=== PATIENT | male | born 1985 | race Two or more races ===

== ENCOUNTER 2021-12-26 23:10 | Emergency (ER) | payer OTHER ==
[~2021-12-26] VITALS: Ht 175.3 cm; Wt 90.7 kg
--- NOTE | 2021-12-26 23:26 | NUR ---
BIBRA C/O RLE PAIN S/P FALL FROM SCOOTER. -HT -KO. PT CHANGED INTO A GOWN AND LOWER EXTREMITY VISUALIZED WITH SKIN INTACT AND NO GROSS DEFORMITIES. PLACED ON MONITOR AND ALL V/S STABLE.
--- NOTE | 2021-12-26 23:43 | NUR ---
PT SEEN BY DR. LAW WYATT.
[2021-12-26] MEDS ORDERED: TRAMADOL HCL 50 MG TABLET ONE (23:45)
[2021-12-26] MEDS ORDERED: KETOROLAC TROMETHAMINE INJ 30 MG/ML VIAL ONE (23:45)
--- NOTE | 2021-12-26 23:51 | NUR ---
DEVELOPMENTAL SERVICES WORKER AT PT'S BEDSIDE
[2021-12-27] MEDS ORDERED: TRAMADOL HCL 50 MG TABLET PO ONE
[2021-12-27] MEDS ORDERED: KETOROLAC TROMETHAMINE INJ 30 MG/ML VIAL IM ONE
--- NOTE | 2021-12-27 00:58 | NUR ---
CLINICAL PHLEBOTOMIST AT PT'S BEDSIDE
--- NOTE | 2021-12-27 02:33 | NUR ---
DR ANKIT JENNINGS PER DR GODDARD.
--- NOTE | 2021-12-27 03:00 | NUR ---
DR PHAM REPAGED.
--- NOTE | 2021-12-27 03:11 | NUR ---
DR SUNDAR JENNINGS ,
--- NOTE | 2021-12-27 03:30 | NUR ---
DR PHAM REPAGED.
--- NOTE | 2021-12-27 04:00 | NUR ---
DR PHAM REPAGED.
[2021-12-27] MEDS ORDERED: oxyCODONE/APAP (5/325 MG) 1 UDTAB TABLET PO ONE (04:30)
--- NOTE | 2021-12-27 04:30 | NUR ---
DR PHAM REPAGED.
[2021-12-27] MEDS ORDERED: oxyCODONE/APAP (5/325 MG) 1 UDTAB TABLET ONE (04:35)
--- NOTE | 2021-12-27 05:06 | NUR ---
BUILDINGS AND GROUNDS SUPERINTENDENT AT PT'S BEDSIDE
--- NOTE | 2021-12-27 05:42 | NUR ---
DR GODDARD ON THE PHONE W/ DR PHAM, ORTHO
[2021-12-27] MEDS ORDERED: HYDR-3980 PO (05:51)
[2021-12-27 06:09] LABS: CALCIUM, SERUM 8.5 mg/dL (8.5-10.1); CREATININE 1.1 mg/dL (0.6-1.3); POTASSIUM 3.6 mmol/L (3.5-5.1)
--- NOTE | 2021-12-27 06:12 | NUR ---
CALLED SAMANTHA NO RESPONSE; SMS LEFT. WILL CALL AGAIN
--- NOTE | 2021-12-27 06:21 | NUR ---
Patient discharged to home in stable condition. RX Written and verbal after care instructions given. Patient verbalizes understanding of instruction. KNEE BRACE TO PT'S KNEE.
[2021-12-27] MEDS ORDERED: HYDR-4275 PO (07:25)
[2021-12-27 07:26] LABS: BASOPHILS # (AUTO) 0.1 K/uL (0.0-0.2); BASOPHILS % (AUTO) 0.4 % (0.0-2.0); EOSINOPHILS % (AUTO) 1.3 % (0.0-6.0); HEMATOCRIT 49 % (39-51); HEMOGLOBIN 16.8 g/dL (13.5-17.5); LYMPHOCYTES # (AUTO) 2.3 K/uL (0.8-4.8); LYMPHOCYTES % (AUTO) 18.1 % (20.0-44.0); MEAN CORPUSCULAR HGB CONC 34 g/dl (31.0-36.0); MEAN CORPUSCULAR VOLUME 89 fL (80-96); MONOCYTES # (AUTO) 0.9 K/uL (0.1-1.30); NEUTROPHILS # (AUTO) 9.3 K/uL (1.8-8.9); NEUTROPHILS % (AUTO) 73.2 % (43.0-81.0); PLATELET COUNT (AUTO) 197 K/uL (150-450); RED BLOOD CELL COUNT(AUTO) 5.55 MIL/uL (4.5-6.0); WHITE BLOOD COUNT (AUTO) 12.8 K/uL (4.3-11.0)
[2021-12-27] MEDS ORDERED: HYDROCODONE/APAP 5/325MG TABLET ONE (09:00)
[2021-12-27] MEDS ORDERED: HYDROCODONE/APAP 5/325MG TABLET PO ONE (09:00)
--- NOTE | 2021-12-27 09:36 | NUR ---
PT , SAMANTHA ARRIVED TO PLASMA PROCESSING TECHNICIAN PATIENT, PT IS LEAVING IN STABLE CONDITION.
[2021-12-27 09:58] VITALS: BP 136/91
== END 2021-12-27 09:58 | disposition home or self-care (01) ==
LOC: ER 23:12
DX: S82.144A Nondisplaced bicondylar fracture of right tibia, initial encounter for closed fracture (principal); W05.1XXA Fall from non-moving nonmotorized scooter, initial encounter; Y93.89 Activity, other specified; Y92.89 Other specified places as the place of occurrence of the external cause; Y99.8 Other external cause status
CPT/HCPCS: 29505; 36415; 73552; 73560; 73590; 80048; 85025; 85730; 96372; 99285; J1885